=== PATIENT | female | born 1940 | race Caucasian/White ===

== ENCOUNTER 2017-06-12 08:24 | Day surgery (SDC) | payer MEDICARE, OTHER ==
[~2017-06-12] VITALS: Ht 167.6 cm; Wt 84.5 kg
[~2017-06-12 08:24] MED LIST: AMLO5; ASPI81CH; CELE200; CONEST1.25; DICL75ER; FOSI10; HYDCHL50; Hair, Skin & N1 EACH; POTA10T
[2018-03-28] MEDS ORDERED: CONEST1.25 (11:19)
[2018-03-28] MEDS ORDERED: NEBI5 (11:20)
== END 2017-06-12 11:53 | disposition home or self-care (01) ==
LOC: ORSCSDS 08:24
PROVIDERS: Surgery
PROC: 0DB68ZX Excision of Stomach, Via Natural or Artificial Opening Endoscopic, Diagnostic (ICD-10-PCS; principal; 2017-06-12 10:00)
PROC: 0DJD8ZZ Inspection of Lower Intestinal Tract, Via Natural or Artificial Opening Endoscopic (ICD-10-PCS; principal; 2017-06-12 10:00)
PROC: 0DB48ZX Excision of Esophagogastric Junction, Via Natural or Artificial Opening Endoscopic, Diagnostic (ICD-10-PCS; principal; 2017-06-12 10:00)
DX: R10.13 Epigastric pain (principal); K22.70 Barrett's esophagus without dysplasia; K25.9 Gastric ulcer, unspecified as acute or chronic, without hemorrhage or perforation; K29.50 Unspecified chronic gastritis without bleeding; B96.81 Helicobacter pylori [H. pylori] as the cause of diseases classified elsewhere; K57.30 Diverticulosis of large intestine without perforation or abscess without bleeding; Z12.11 Encounter for screening for malignant neoplasm of colon; R11.0 Nausea; I10 Essential (primary) hypertension; E78.5 Hyperlipidemia, unspecified; M79.7 Fibromyalgia; Z79.899 Other long term (current) drug therapy
CPT/HCPCS: 43239; G0121; 88305; 88342

== ENCOUNTER 2017-09-11 | Day surgery (SDC) | END 2017-09-11 11:35 | disposition home or self-care (01) ==

== ENCOUNTER 2024-08-28 13:45 | Inpatient (IN) | payer MEDICARE, OTHER ==
[~2024-08-28] VITALS: Ht 162.6 cm; Wt 63.3 kg
[2024-08-30 07:40] VITALS: BP 153/72
== END 2024-08-30 11:21 | disposition hospice, home (50) | DRG 80 ==
LOC: ER 13:45 → ERHOLD 13:46 → MEDS 13:46
PROVIDERS: ADMIT Internal Medicine
DX: G93.6 Cerebral edema (principal); G92.8 Other toxic encephalopathy; G93.41 Metabolic encephalopathy; I21.A1 Myocardial infarction type 2; C79.31 Secondary malignant neoplasm of brain; N39.0 Urinary tract infection, site not specified; Z51.5 Encounter for palliative care; C79.51 Secondary malignant neoplasm of bone; C78.02 Secondary malignant neoplasm of left lung; C78.01 Secondary malignant neoplasm of right lung; C79.89 Secondary malignant neoplasm of other specified sites; B96.1 Klebsiella pneumoniae [K. pneumoniae] as the cause of diseases classified elsewhere; I10 Essential (primary) hypertension; Z85.820 Personal history of malignant melanoma of skin; Z88.5 Allergy status to narcotic agent; Z79.82 Long term (current) use of aspirin; Z79.1 Long term (current) use of non-steroidal anti-inflammatories (NSAID); Z87.11 Personal history of peptic ulcer disease; Z87.19 Personal history of other diseases of the digestive system; Z86.19 Personal history of other infectious and parasitic diseases